=== PATIENT | male | born 1945 | race African-American/Black ===

== ENCOUNTER 2018-11-18 08:55 | Day surgery (SDC) | payer OTHER ==
[2018-11-17 09:02] VITALS: BMI 28.5
--- NOTE | 2018-11-18 11:55 | HP ---
Satellite [facility] - Chief Complaint Chief Complaint: left hand pain, numbness - Past Medical History Allergies/Adverse Reactions: Allergies Allergy/AdvReac Type Severity Reaction Status Date / Time No Known Allergies Allergy Verified 11/18/18 11:08 - Current Medications Current Medications: Home Medications Medication Instructions Recorded Sitagliptin Phos/Metformin HCl 1 each PO BID 11/17/18 [Janumet Xr 50-500 mg Tablet] Oxycodone HCl/Acetaminophen 1 tab PO Q6H #20 tablet MDD 4 11/18/18 [Percocet 5-325 mg Tablet] Satellite Physical Exam - Physical Examination Vital Signs: Vital Signs Period Temp Pulse Resp BP Sys/Espinal Pulse Ox Last 24 Hr 98.0 F 73 20 103/65 100 General Appearance: Well Nourished, Well Developed, Alert & Oriented x3 ENT: Clear Lung: Normal air movement Heart: Regular rate & rhythm Extremities: Other (left hand + pain ,decr rom ,+ numbness, + phalens, EMG + CTS ) Neurological: Intact, Alert, Oriented Satellite Impression/Plan - Impression/Plan Impression: left cts, SL diastasis Operative Procedure: left CTR, DIC capsulodesis Date to be Performed: 11/18/18
[2018-11-18] MEDS ORDERED: ONDANSETRON 4 MG/2 ML VIAL IVPUSH PRN (12:39)
[2018-11-18] MEDS ORDERED: oxyCODONE HCL 5 MG TABLET PO PRN ×2 (12:39)
[2018-11-18] MEDS ORDERED: LACTATED RINGERS SOLUTION 1,000 ML IV SCH (12:45)
[2018-11-18] MEDS ORDERED: MIDAZOLAM HCL 2 MG/2 ML SINGLE DOSE VIAL ONE (12:48)
[2018-11-18] MEDS ORDERED: ceFAZolin SODIUM 1 GM VIAL ONE (12:56)
[2018-11-18] MEDS ORDERED: ceFAZolin SODIUM 1 GM VIAL IVPB ONE (12:57)
[2018-11-18] MEDS ORDERED: LIDOCAINE HCL 1%, 10 MG/ML (20ML VIAL) NR ONE (13:15)
[2018-11-18] MEDS ORDERED: BUPIVACAINE HCL/PF 0.5% (5MG/ML) 10 ML VIAL IJ ONE (13:15)
[2018-11-18] MEDS ORDERED: PROPOFOL 20 ML ONE ×2 (13:23→14:02)
[2018-11-18] MEDS ORDERED: DEXAMETHASONE SOD PHOSPHATE 4 MG/1 ML VIAL ONE (14:46)
[2018-11-18] MEDS ORDERED: KETOROLAC TROMETHAMINE 30 MG/1 ML VIAL ONE (14:47)
[2018-11-18 16:19] VITALS: TEMP 97.4
[2018-11-18 16:49] VITALS: BP 136/71; PULSE 71
--- NOTE | 2018-11-19 10:34 | OP ---
Operative Note - Note: Operative Date: 11/18/18 Pre-Operative Diagnosis: left wrist CTS and instability, SL ligament tear Operation: left CTR, tenosynovectomy, DIC capsulodesis Implants: Mini Mytek Quick anchor x 2 Surgeon: Manjit Stevenson Anesthesiologist/OFFICE HELPER: Oscar Traylor Anesthesia: General, Local Specimens Removed: tenosynovium Estimated Blood Loss (mls): 0 Drains, Volume Out (mls): 0 Blood Volume Replaced (mls): 0 Fluid Volume Replaced (mls): 1,000 Operative Report Dictated: Yes
--- NOTE | 2018-11-20 15:51 | PATH ---
Surgical Pathology Report Patient Name: GORDY BARRETO [facility]. Rec. #: [id number] /Age/Gender: 1945 (Age: 73) / M Account: [id number] Location: [facility] SURGICAL Taken: 11/18/2018 Received: 11/19/2018 Reported: 11/20/2018 Physicians: Manjit Stevenson M.D. Specimen(s) Received A: TENOSYNOVIUM LEFT HAND/WRIST B: POSTERIOR INTEROSSEUS NERVE Clinical History Carpal tunnel syndrome Final Diagnosis A. TENOSYNOVIAL, HAND/WRIST, LEFT, CARPAL TUNNEL RELEASE, TENOSYNOVECTOMY: BENIGN DENSE FIBROCONNECTIVE TISSUE. B. POSTERIOR INTEROSSEOUS NERVE, NEURECTOMY: VASCULAR TISSUE CONSISTENT WITH PORTION OF VEIN. NO NERVE TISSUE IDENTIFIED. Electronically Signed Lalitha Balderrama M.D. Gross Description A. Received in formalin labeled "tenosynovial left hand/wrist," is a 2.4 x 2.4 x 0.3 cm aggregate of newby-yellow portions of soft tissue, consistent with tenosynovium. The specimen is submitted in toto in one cassette. B. Received in formalin labeled "posterior interosseous nerve," is a 1.1 cm in length x 0.1 cm in diameter newby, cylindrical portion of soft tissue. The specimen is submitted in toto in one cassette. 11/[facility]
--- NOTE | 2018-11-27 11:21 | OP ---
DATE OF OPERATION: 11/18/2018 PREOPERATIVE DIAGNOSES: Left carpal tunnel syndrome and internal derangement left wrist/scapholunate ligament tear and scaphoid lunate advanced collapse (SLAC) wrist. POSTOPERATIVE DIAGNOSES: Left carpal tunnel syndrome and internal derangement left wrist/scapholunate ligament tear and scaphoid lunate advanced collapse (SLAC) wrist. PROCEDURES: 1. Left wrist dorsal intercarpal (DIC) capsulodesis. 2. Posterior interosseous nerve (PIN) neurectomy. 3. Left carpal tunnel release. 4. Tenosynovectomy. SURGEON: Serena Gleason MD ASSISTANTS: None. LEARNING COORDINATOR: Oscar Traylor CRNA ANESTHESIA: LMA. Local injection of 20 mL of 0.5% Marcaine and 1% lidocaine mix. DRAINS: None. COMPLICATIONS: None. SPECIMEN: Posterior interosseous nerve, left wrist, and tenosynovium, left wrist. BLOOD LOSS: None. BLOOD GIVEN: None. FLUID REPLACEMENT: 1000 mL of Plasmalyte. INDICATIONS: This patient is a -[id number] male with a preoperative diagnosis of a left SLAC wrist and carpal tunnel syndrome. After understanding the potential risks, complications, alternatives and benefits of surgery versus nonsurgical treatment, the patient elected to undergo this procedure. The patient understands he may not get complete relief of his symptoms; the SLAC wrist could develop further; could develop arthritis; and he may not get complete relief of his carpal tunnel syndrome symptoms. DESCRIPTION OF PROCEDURE: The patient was brought to the operating room, peripheral IV placed and intravenous sedation was given. One gram of intravenous Ancef was given. MAC anesthesia was induced. A tourniquet was applied to the left upper arm and the left upper extremity was prepped and draped in sterile fashion. The entire case was done under 3.8-loupe magnification. A marking pen was utilized to lauren out a longitudinal incision in an already existing skin crease. Twenty mL of 0.5% Marcaine mixed with 1% lidocaine was injected in and around the surgical incision. The left upper extremity was elevated, exsanguinated with an Esmarch bandage and the tourniquet inflated to 250 mmHg. A No. 15 scalpel blade was utilized to cut down through the skin. Subcutaneous hemostasis was achieved with the bipolar cautery. Dissection was done through the superficial palmar fascia. Self-retaining retractors were placed into the wound. Under direct visualization, the transverse carpal ligament was transected with a No. 15 scalpel blade, exposing the median nerve and the contents of the carpal tunnel. The distal and proximal extents of the release were completed with a Littler scissors and checked with irrigation and my small finger. They were seen to be complete. Limited dissection was done on the radial side of the median nerve and more extensive dissection was done on the ulnar side of the median nerve. The patients nerve was seen to be quite compressed by epineurium and therefore a limited epineurotomy was performed. A Ragnell retractor was used to gently retract the median nerve in a radial direction. The patient had a lot of tenosynovitis and therefore a tenosynovectomy was performed off all 9 flexor tendons. This was passed off the field as tenosynovium left wrist. The floor of the carpal tunnel was checked. There were no abnormal masses or ganglion cysts. The area was copiously irrigated and washed out and closure begun. Undyed 4-0 Vicryl was used to close the deep dermal layer. Final skin reapproximation was done with horizontal mattress 4-0 nylon sutures. The area was then washed and dried, covered with Xeroform, 4 x 4's, fluffs between the fingers, Webril and a 4-inch plaster roll was utilized to make a volar splint, which was then wrapped with Joshua and Coban. Next, a transverse incision was made with a number-15 scalpel blade. Subcutaneous hemostasis achieved with the bipolar cautery. Dissection done with the Littler scissors, exposing the EPL tendon. An incision was made through the dorsal retinaculum between the 3rd and 4th dorsal extensor tendon compartments. Dissection was done down to the radial aspect of the floor of the 4th compartment. The posterior interosseus nerve was identified, a portion of it resected and sent off as specimen. After the PIN neurectomy, I did a T-capsulotomy through the base of the 4th dorsal extensor tendon compartment, exposing the SL ligament area, the scaphoid and the lunate. I was able to peel a radial and ulnar flap off the lunate and the ulna. I then put a 0.062 K-wire at the appropriate angle through the lunate and eliminated the extension deformity. I put another 0.062 K-wire in the scaphoid, eliminated the flexion deformity by bringing the two K-wires together and I pinned them in place with another 0.062 K-wire. Once it was pinned in place, the two joysticks were removed. The patient had a moderately strong portion of dorsal intercarpal ligament which I mobilized and then utilized as our tether. I put in two mini Mitek suture anchors into the scaphoid at the dorsal scaphoid ridge and tacked down the portion of the dorsal intercarpal ligament. I also incorporated a portion which was stronger of the dorsal radial retinaculum, more consistent with a Melanie capsulodesis. It all came together quite nicely and it was reinforced with 2-0 Ethibond suture. The area was irrigated and washed out. I closed the rest of the dorsal retinaculum both deep to and superficial to the 4th dorsal extensor compartment. The area was irrigated and washed out again. The deep dermal layer was closed with 4-0 undyed Vicryl and the final skin reapproximation was done with a running subcuticular 4-0 Biosyn stitch. The pins were bent, cut, and pin caps applied. The incisions were then covered with Steri-Strips, Xeroform over the volar carpal tunnel incision. The area was then covered with a 4 x 4, Webril, and an Orthoglass splint was applied, wrapped with Joshua and Coban. The tourniquet was taken down after a total tourniquet time of about 85 minutes. There were no complications during the case. The patient tolerated the procedure quite well and was brought to the ambulatory recovery room in stable condition. SERENA GLEASON M.D. [id number]
== END 2018-11-18 16:51 | disposition home or self-care (01) ==
LOC: JASU-SURG 08:55
PROVIDERS: ATTEND Orthopaedic Surgery
PROC: 0RNP0ZZ Release Left Wrist Joint, Open Approach (ICD-10-PCS; 2018-11-18)
PROC: 01N50ZZ Release Median Nerve, Open Approach (ICD-10-PCS; principal; 2018-11-18 10:30)
DX: G56.02 Carpal tunnel syndrome, left upper limb (principal); M24.232 Disorder of ligament, left wrist; S63.592A Other specified sprain of left wrist, initial encounter; X58.XXXA Exposure to other specified factors, initial encounter; Y93.9 Activity, unspecified; Y92.9 Unspecified place or not applicable
CPT/HCPCS: 82962; 88304-TC; 94760